=== PATIENT | male | born 1950 | race Caucasian/White ===

== ENCOUNTER → 2019-01-23 | Outpatient (CLI) | payer MEDICARE ==
[~2019-01-23] MED LIST: AMLO10TA8 PO; ASPI-630 PO; CHOL400C2 PO; CLOP75TA PO; ESOM20CA PO; MAGN100T3 PO; POTASSIUM OTC PO; PYRI200T3 PO
--- NOTE | 2019-01-23 12:47 | RAD ---
Indication: Claudication TECHNIQUE: Grayscale, color Doppler and spectral waveform images of the bilateral lower extremity arteries COMPARISON: None FINDINGS: Right side: Biphasic waveforms in the HAND STONER with velocity of 147 cm/s. Triphasic waveforms in the deep femoral artery with velocity of 169 cm/s. Occluded superficial femoral artery with collateralization. The distal most aspect of the SFA demonstrates monophasic waveform with velocity of 24 cm/s. Monophasic waveform in the popliteal artery with velocity of 21 cm/s. Monophasic monophasic waveform in the proximal anterior tibial artery with velocity of 18 cm/s. Monophasic waveform in the peroneal artery with velocity of 19 cm/s. Monophasic waveform in the dorsalis pedis artery with velocity of 13 cm/s. Monophasic waveform in the distal posterior tibial artery with velocity of 20 cm/s. Monophasic waveform in the proximal [employer] with velocity of 11 cm/s. Left side: Biphasic waveform in the HAND STONER with velocity of 119 cm/s. Biphasic waveform in the deep femoral artery with velocity of 50 cm/s. Biphasic waveform in the proximal SFA with velocity of 122 cm/s. Biphasic waveforms in the mid SFA with velocity of 80 cm/s. Biphasic waveforms in the distal SFA with velocity of 75 cm/s. Biphasic waveforms in the popliteal artery with velocity of 56 cm/s. Biphasic waveforms in the proximal [employer] with velocity of 45 cm/s. Biphasic waveforms in the peroneal artery with velocity of 61 cm/s. Biphasic waveforms in the anterior tibial artery with velocity of 27 cm/s. Monophasic waveforms in the dorsalis pedis artery with velocity of 116 cm/s. IMPRESSION: 1. Occluded proximal and mid right SFA with collateral vessels originating proximally to occlusion and supplying distal most aspect of the SFA. 2. Diffuse significant multifocal atherosclerotic plaque in the bilateral lower extremities without focally increased velocity to suggest focal stenosis. 3. Occlusion of the left dorsalis pedis artery just above the ankle with collaterals supplying the distal segment into the foot. Electronically signed by: Tyrone Salmeron DO (01/23/2019 12:44 PM) [facility]
== END | disposition home or self-care (01) ==
LOC: US 09:31
PROVIDERS: ATTEND Family Medicine
DX: I70.213 Atherosclerosis of native arteries of extremities with intermittent claudication, bilateral legs (principal); I77.1 Stricture of artery
CPT/HCPCS: 93925

== ENCOUNTER 2019-02-02 07:05 | Outpatient (CLI) | payer MEDICARE ==
[~2019-02-02] VITALS: Ht 180.3 cm; Wt 92.5 kg
[2019-02-02] VITALS (12 sets, daily range): BP systolic 160–182; BP diastolic 77–110
[2019-02-02] MEDS ORDERED: PYRI200T3 PO (07:29)
[2019-02-02] MEDS ORDERED: ASPI-630 PO (07:29)
[2019-02-02] MEDS ORDERED: CHOL400C2 PO (07:29)
[2019-02-02] MEDS ORDERED: MAGN100T3 PO (07:29)
[2019-02-02] MEDS ORDERED: POTASSIUM OTC PO (07:29)
[2019-02-02] MEDS ORDERED: ESOM20CA PO (07:29)
[2019-02-02] MEDS ORDERED: AMLO10TA8 PO (07:29)
[2019-02-02 07:41] LABS: BASO % 1 % (0-3); EOS # 0.2 x10^3/uL (0.0-0.7); EOS % 4 % (0-3); HEMATOCRIT 45.4 % (39.0-53.0); HEMOGLOBIN 15.9 g/dL (13.0-17.5); LYMPH # 1.2 x10^3/uL (1.0-4.8); LYMPH % 23 % (24-48); MEAN CORPUSCULAR HEMOGLOBIN 32 pg (25-35); MEAN CORPUSCULAR HGB CONC 35 g/dL (31-37); MEAN CORPUSCULAR VOLUME 90 fL (79-100); MONO # 0.5 x10^3/uL (0.0-1.1); MONO % 9 % (0-9); NEUT # 3.2 x10^3/uL (1.8-7.7); NEUT % 62 % (31-73); PLATELET COUNT 224 x10^3/uL (140-400); RED BLOOD COUNT 5.04 x10^6/uL (4.30-5.70); RED CELL DISTRIBUTION WIDTH 12.9 % (11.5-14.5); WHITE BLOOD COUNT 5.2 x10^3/uL (4.0-11.0)
[2019-02-02 07:50] LABS: CALCIUM 9.6 mg/dL (8.5-10.1); CREATININE 1.1 mg/dL (0.7-1.3); POTASSIUM 4.2 mmol/L (3.5-5.1)
[2019-02-02 08:10] LABS: PROTHROMBIN TIME PATIENT 12.9 SEC (11.7-14.0)
[2019-02-02] MEDS ORDERED: IODIXANOL 320 MG/ML 100 ML VIAL. ONE ×2 (08:41→10:49)
[2019-02-02] MEDS ORDERED: LIDOCAINE WITH 8.4% SOD BICARB 3 ML DISP.SYRIN. ONE (08:41)
[2019-02-02] MEDS ORDERED: HEPARIN for ARTERIAL LINE 1,500 ML ONE (08:41)
[2019-02-02] MEDS ORDERED: fentaNYL PF VIAL 250 MCG/5 ML VIAL ONE (09:24)
[2019-02-02] MEDS ORDERED: MIDAZOLAM HCL/PF 5 MG/5 ML VIAL. ONE (09:24)
[2019-02-02] MEDS ORDERED: HEPARIN for IV BOLUS 10,000 UNIT/10 ML VIAL. ONE (09:24)
[2019-02-02] MEDS ORDERED: LIDOCAINE WITH 8.4% SOD BICARB 3 ML DISP.SYRIN. IJ ONE (09:45)
[2019-02-02] MEDS ORDERED: fentaNYL PF VIAL 250 MCG/5 ML VIAL IV ONE (09:45)
[2019-02-02] MEDS ORDERED: MIDAZOLAM HCL/PF 5 MG/5 ML VIAL. IV ONE (09:45)
[2019-02-02] MEDS ORDERED: IODIXANOL 320 MG/ML 100 ML VIAL. IART ONE (09:45)
[2019-02-02] MEDS ORDERED: HEPARIN for IV BOLUS 10,000 UNIT/10 ML VIAL. IV ONE (12:15)
[2019-02-02] MEDS ORDERED: CLOPIDOGREL BISULFATE 75 MG TABLET PO ONE (12:30)
[2019-02-02] MEDS ORDERED: LORazepam 1 MG TABLET PO ONE (13:30)
--- NOTE | 2019-02-02 13:34 | RAD ---
02/02/2019 1. Abdominal aortogram 2. Pelvic angiography 3. Right lower extremity angiography 4. 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 Angioplasty, right common femoral artery 6. Placement of self-expanding stent, left external iliac artery Indication: 68-year-old male with bilateral claudication. Symptoms are greater on the right. Recent ultrasound evaluation demonstrates apparent chronic total occlusion, right SFA of the lung with bilateral severe atherosclerotic vascular disease. Consent: The procedure was explained in its entirety to the patient or the patients designated electroplating sales representative by a member of the treatment team, including a discussion of the risks, benefits and commonly accepted alternatives to the procedure, as well as the expected consequences of no therapy whatsoever. Discussion of the risks included, but was not limited to, those that are most frequent and those that are rare but possibly severe or life-threatening, as well as the possibility of unforeseen complications. All elements of maximal sterile barrier technique including the use of a cap, mask, sterile gown, sterile gloves, large sterile sheet, appropriate hand hygiene, and 2% chlorhexidine for cutaneous antisepsis (or acceptable alternative antiseptic per current guidelines) were followed for this procedure. The left groin was prepped and draped using sterile barrier technique. 1% lidocaine was administered for local anesthesia. Ultrasound evaluation demonstrates the left common femoral artery to be calcified but patent. The left common femoral artery was accessed using micropuncture technique and direct ultrasound guidance. A 5 Salv[place]orean vascular sheath was placed. Reference ultrasound images were saved in the medical record. An Omni flush catheter was advanced into the abdominal aorta. Abdominal aortogram was performed. The abdominal aorta is diffusely calcified but demonstrates no aneurysm or flow-limiting stenosis. Limited visualization of the visceral arteries demonstrates no gross abnormality. The catheter was then positioned in the inferior abdominal aorta and pelvic angiography was performed and bilateral oblique positions. There is 70-80% stenosis of the left external iliac artery just seen on its origin. No hemodynamically significant aortoiliac stenosis is seen on the right. The bilateral common femoral arteries are calcified. The degree of flow limitation is difficult to assess but estimated at approximately 50%. The aortic bifurcation was crossed. With the catheter positioned in the right external iliac artery, right lower extremity angiography was performed demonstrating chronic total occlusion of the right superficial femoral artery just beyond its origin with reconstitution in the mid thigh. The popliteal artery remains patent. Limited evaluation tibial vessels demonstrates two-vessel flow to the ankle. Evaluation of the foot was limited secondary to severity of inflow disease. A guidewire and catheter were manipulated through the chronically occluded segment of the right superficial femoral artery. Angiograms were obtained with catheter positioned in the superficial femoral artery as well as the popliteal artery following traversing the lesion. The right superficial femoral artery then treated with placement of overlapping 7 mm self expanding stents which were post dilated to approximately 5 mm. This resulted in reestablishment of in-line flow. Mild residual narrowing in the mid SFA persists which was resistant to repeated balloon angioplasty. Angioplasty of the common femoral artery was then performed with the same 5 mm balloon. No significant wasting is identified. Repeat angiography demonstrates significantly improved flow throughout right lower extremity with preservation of two-vessel flow. The sheath was withdrawn into the left distal external iliac artery. The previously described external iliac artery stenosis was treated by placement of a 10 mm self expanding stent postdilated to 8 mm. This resulted in significantly improved morphology and flow through the area of narrowing. Some mild resistive persistent narrowing is seen. The sheath was removed during deployment of a minx closure device. Manual pressure was held. No immediate complications were identified. Sterile dressings were applied. Total Fluoroscopy Time: 21.9 Minutes Dose area Product: 74.79 Gycm2 Sedation The procedure was performed under conscious sedation, including continuous cardiopulmonary monitoring via a dedicated sedation nurse. Face to face sedation time : 90 minutes Impression: 1. Left external iliac artery stenosis treated with placement of a self-expanding stent as described 2. Treatment of right superficial femoral artery chronic total occlusion with placement of self-expanding stents, 3. Treatment of right common femoral stenosis with balloon angioplasty 6. Two-vessel runoff on the right
[2019-02-02] MEDS ORDERED: CLOPIDOGREL BISULFATE 75 MG TABLET ONE (13:54)
[2019-02-02] MEDS ORDERED: CLOP75TA PO (15:11)
--- NOTE | 2019-02-02 16:00 | NUR ---
Discharge Note: CAROLANN ROSARIO Discharge instructions and discharge home medications reviewed with Family Member and a copy given. All questions have been answered and understanding verbalized. The following instructions and handouts were given: Moderate sedation, groin site care and angioplasty/stent care. Patient given stent cards and educated to keep in wallet, patient verbalized understanding. Patient ate milkshake brought in by daughters, tolerated well with no issues. Discontinued lines and drains: PIV right AC, dressing clean dry intact. Patient discharged to home with daughter via wheelchair to private vehicle.
== END 2019-02-02 16:00 | disposition home or self-care (01) ==
LOC: INTRAD 07:05
PROVIDERS: ATTEND Family Medicine
DX: I70.213 Atherosclerosis of native arteries of extremities with intermittent claudication, bilateral legs (principal)
CPT/HCPCS: 36415; 37221; 37226; 75625; 75710; 76937; 80048; 85025; 85610; C1713; C1725; C1760; C1769; C1887; C1892; C1894; J0690; J1644; J2250; J3010; Q9967; 99152; 99153; G0269